=== PATIENT | female | born 1955 | race Caucasian/White ===

== ENCOUNTER → 2023-10-26 08:55 | Outpatient (CLI) | payer OTHER, MEDICAID, SELFPAY ==
--- NOTE | 2023-10-26 09:00 | DI.CT.S_ITS ---
PROCEDURE: CT KNEE RIGHT WITHOUT CON INDICATIONS: ACUTE PAIN OF RIGHT KNEE TECHNIQUE: Noncontrast 2.5 mm axial sections through the femoral head, 1.5 mm axial sections through the knee, and 2.5 mm axial sections through the ankle of the side of interest. Additional 1 mm sagittal and coronal reformats acquired through the knee. COMPARISON: None. FINDINGS: Image quality: Excellent. Bones: Status post right total knee arthroplasty, in near anatomic alignment. No hardware complication. Soft tissues: Moderate knee effusion. Ossification about the distal quadriceps tendon, representing prior injury. The quadriceps tendon is intact. IMPRESSION: Status post right total knee arthroplasty, in near anatomic alignment. No hardware complication. Moderate knee effusion. Dictated by: Teresa Sharpe M.D. on 10/26/2023 at 14:48 Approved by: Teresa Sharpe M.D. on 10/26/2023 at 14:52
== END ==
LOC: CT 08:59
PROVIDERS: Referring Provider Student in an Organized Health Care Education/Training Program; Visit Provider Student in an Organized Health Care Education/Training Program
DX: M25.461 Effusion, right knee (principal); M25.561 Pain in right knee; Z96.651 Presence of right artificial knee joint
CPT/HCPCS: 73700